=== PATIENT | female | born 1960 | race Caucasian/White ===

== ENCOUNTER 2019-07-31 14:58 | Outpatient (REF) | payer SELFPAY ==
[2019-07-31 16:36] LABS: Estmated Average Glucose 108; Hemoglobin A1C 5.4 % (4.0-6.0)
[2019-07-31 17:43] LABS: Cholesterol 195 mg/dL (0-200); Glucose 91 mg/dL (65-115); HDL Cholesterol 39 mg/dL (60-100); LDL Cholesterol Calculated 128 mg/dL (50-129); LDL HDL Ratio 3.28 RATIO (0.00-3.22); Triglycerides 141 mg/dL (0-150)
== END 2019-07-31 14:59 | disposition home or self-care (01) ==
LOC: LAB 14:58
PROVIDERS: Family Provider Family Medicine; PCP Family Medicine; Visit Provider Dermatology
DX: Z13.9 Encounter for screening, unspecified (principal)
CPT/HCPCS: 80061; 82947; 83036

== ENCOUNTER 2020-04-07 21:52 | Emergency (ER) | payer OTHER, SELFPAY ==
[2020-04-07 22:03] VITALS: BP 138/88; PULSE 93; RESP 18; O2SAT 95; BMI 39.1
--- NOTE | 2020-04-07 22:18 | ECG_ITS ---
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
--- NOTE | 2020-04-07 22:19 | XR_ITS ---
WS: [id number] XR chest 1V portable [id number] REASON FOR EXAM: Cough FINDINGS: The chest is unchanged compared to previous examination of 12/14/2011. The heart and mediastinum are within normal limits. No active pulmonary parenchymal or pleural disease is noted. Changes of degenerative spondylosis in the mid thoracic spine. XR/XR chest 1V portable [id number] IMPRESSION: No acute chest abnormality.
--- NOTE | 2020-04-07 22:23 | W.ED.COVID ---
HPI - COVID General: Chief Complaint: COVID symptoms Stated Complaint: COVID SYMPTOMS/ SOB Time Seen by Provider: 04/07/20 22:14 Source: patient Mode of arrival: ambulatory Limitations: no limitations Triage information: Has fever, cough or shortness of breath. Exposure to COVID + person last 14 days History of Present Illness: HPI Narrative: Christi is a nice 59-year-old female comes in complaining of sinus congestion, earache, sore throat, cough and rib pain. She states her ribs are sore from coughing so much. She states her greatest complaint is that of just drainage from her sinuses going down the back of her throat. She denies any fevers or chills. She denies any chest pain. She has her ribs are sore from coughing but otherwise denies any chest pain. Patient denies any other complaints or concerns. COVID 19 common symptoms: positive non-productive cough and throat pain; negative fever(s), chills, productive cough, dyspnea, fatigue, body aches, headache(s), nausea, vomiting or diarrhea COVID 19 other sytmptoms: negative chest pain or confusion COVID Results: SARS-CoV-2 Antigen (Rapid) Positive (Negative) H 04/07/20 22:29 04/07/20 Review of Systems Const: Denies: fever(s), chills, body aches, fatigue, malaise or diaphoresis Eyes: Denies: change in vision, blurry vision, photophobia, eye discomfort, eye discharge, eye redness or yellow eyes ENMT: Reports: throat pain and ear or mastoid pain; Denies: odynophagia, hoarseness, swelling of lips/tongue, ear discharge, change in hearing or nasal discharge Card: Denies: chest pain, palpitations, irregular heart rhythm, edema, lightheadedness, syncope, pre-syncope, dyspnea on exertion or orthopnea Resp: Reports: non-productive cough; Denies: dyspnea, productive cough, wheezing, hemoptysis or chest congestion GI: Denies: abdominal pain, nausea, vomiting, hematemesis, coffee ground emesis, heartburn, diarrhea, constipation, GI cramping, hematochezia or melena : Denies: flank pain, dysuria, urinary frequency, urinary urgency or hematuria Musc: Denies: neck pain, back pain, extremity pain, extremity swelling, joint pain, joint swelling, joint redness, joint warmth or joint stiffness Skin/Breast: Denies: rash, pruritus, erythema, skin pain or skin tenderness Neuro: Denies: headache(s), numbness in extremities, weakness in extremities, sensory changes, lack of coordination, difficulty walking, dizziness, vertigo, confusion, Slurred speech present or seizure-like activity Alfred/Lymph: Denies: easy bruising, easy bleeding, petechiae, purpura or enlarged lymph nodes All/Imm: Denies: urticaria, throat swelling, tongue swelling, facial swelling or acute wheezing PFSH ED PFSH: Medical History No pertinent past medical history Surgical History History of section, classical Physical Exam Const: COMMON NORMALS: no acute distress, patient oriented x3, no limitations and alert GENERAL APPEARANCE: cooperative HENMT: COMMON NORMALS: normocephalic, atraumatic, external ears normal, EAC's normal and Normal external nose present HEAD & SCALP: normal to inspection, normocephalic and atraumatic FACE & SINUS: normal facial exam and face symmetric NOSE: Normal external nose present and Normal nares present EXTERNAL EAR: Yes external ears normal EXTERNAL AUDITORY CANAL: EAC's normal MOUTH: Normal oral and palatal mucosa present, lip normal and tongue normal Eye: COMMON NORMALS: Equal, round and reactive pupils present and conjunctivae normal GENERAL EYE: appearance normal, both eyes and all related structures ALIGNMENT: Yes alignment normal PERIORBITAL: periorbital findings normal EYELID: eyelids normal CONJUNCTIVA: Yes conjunctivae normal SCLERA: sclerae normal PUPIL: Yes Equal, round and reactive pupils present Neck/C-Spine: COMMON NORMALS: full ROM, no lymphadenopathy, supple, no meningeal signs and no JVD GENERAL: Yes normal visual inspection and Yes trachea midline Chest: COMMONS NORMALS: normal inspection of the chest and normal palpation of entire chest wall Resp: COMMON NORMALS: normal respiratory effort, No retractions, No use of accessory muscles and clear to auscultation bilaterally EFFORT & INSPECTION: Yes able to speak in complete sentences and Yes symmetric chest movement AUSCULTATION: clear to auscultation bilaterally, no crackles, no rales, no rhonchi and no wheezes Cardio: COMMON NORMALS: no JVD, regular rate, regular rhythm, S1 normal heart sound present and S2 normal heart sound present RATE: regular rate RHYTHM: regular rhythm HEART SOUNDS: S1 normal heart sound present, S2 normal heart sound present, no click, no gallops, no murmurs and no rubs GI: COMMON NORMALS: Soft to palpation and No hepatosplenomegaly present PALPATION: Yes Soft to palpation, No Tenderness to palpation present (GI), No Guarding due to palpation present (GI), No Rigid due to palpation, Yes No hepatosplenomegaly present, No Hernia present, No Palpable mass present and No Pulsatile mass present : COMMON NORMALS: Yes no CVA tenderness BLADDER/KIDNEY EXAM: Yes no CVA tenderness EXTERNAL FEMALE EXAM: No Hernia present Back/Pelvis: COMMON NORMALS: no CVA tenderness, thoracic and lumbar spine normal to inspection, no thoracic nor lumbar tenderness and thoraco-lumbar ROM normal Extremity: COMMON NORMALS: normal to inspection, full ROM, capillary refill normal, no joint enlargement, no clubbing, cyanosis or edema and no calf tenderness Neuro: COMMON NORMALS: patient oriented x3, CN's II-XII intact bilaterally, moves all extremities, no focal motor deficits and no sensory deficits noted SENSORIUM/ORIENTATION: Yes alert MENINGEAL SIGNS: Yes no meningeal signs SPEECH: speech normal Psych: COMMON NORMALS: mental status grossly normal, Normal thought process present, cooperative, normal affect, speech normal and activity/motor behavior normal SPEECH: Yes normal speech THOUGHT PROCESS: Normal thought process present Skin: COMMON NORMALS: no rashes or lesions noted, turgor normal, no jaundice, no petechiae and no mottling GENERAL SKIN EXAM: no rashes or lesions noted and turgor normal Course Vital Signs: Vital signs: Vital Signs Pulse Rate 78 04/07/20 23:52 Respiratory Rate 18 04/07/20 23:52 Blood Pressure 153/79 04/07/20 23:52 Pulse Oximetry 97 04/07/20 23:52 MDM - COVID MDM Narrative Medical decision making narrative: Patient test positive for the Covid 19 virus. Her chest x-ray is clear and her vital signs are normal. Patient's lung sounds are clear. She is not hypoxic so she would not need Decadron nor rhythm severe. She would not need supplemental O2. I will discharge her home with a pulse oximeter to monitor her pulse ox. She understands how to do this and why to do this. She denies having other questions or concerns but does agree to return should her symptoms change or worsen. Lab Data Attestation: I reviewed the patient's lab results. Labs: Lab Results 04/07/20 Range/Units 22:29 SARS-CoV-2 Ag (Rapid) Positive H (Negative) COVID Results: SARS-CoV-2 Antigen (Rapid) Positive (Negative) H 04/07/20 22:29 04/07/20 Imaging Data CXR: Attestation: I personally reviewed and interpreted this imaging study as follows: My impression: No acute cardiopulmonary findings. EKG Data EKG 2: Attestation: I personally reviewed and interpreted this EKG as follows: EKG interpretation date: 04/07/20 EKG interpretation time: 22:47 Interpretation: Normal sinus rhythm at 78 beats a minute, no blocks, normal intervals, normal axis, no acute ST-T wave changes. Discharge Plan Discharge Patient Disposition: Home Clinical Impression: COVID-19 virus infection Upper respiratory infection Qualifiers: URI type: unspecified viral URI Qualified Code(s): J06.9 - Acute upper respiratory infection, unspecified Condition: Stable Prescriptions: New Tessalon Perles 100 mg capsule 200 mg PO TID PRN (Reason: cough) Qty: 60 RF: 0 Discharge Orders: Discharge Order (Routine); Ordered 04/07/20 Ordered By: Dipti Bingham Referrals: Kane Umana MD [Primary Care Provider] - 1-3 days Discharge Diet: Advance as tolerated Discharge Activity: Increase activity as tolerated Patient Instructions: Viral Pneumonia (ED), Upper Respiratory Infection (ED), Viral Syndrome (ED) Activity Restrictions/Additional Instructions: Please return to the ER immediately for any of the signs or symptoms listed on your discharge instruction sheets, worsening/changing of your symptoms, you are not getting better as quickly as expected, or for ANY other cause or concerns. Stay home and keep yourself quarantined and away from others until cleared by your doctor or the health department. You can contact either to see when they would like to test you so that she can return to work. Use your pulse ox at home and if for any reason your pulse ox fall below is 90% for a significant amount of time such as for more than 1 minute please return to the ER for recheck. Stand Alone Forms: Work/School Release Discharge Date/Time: 04/07/20 23:52 Coding Level of Care Code ED Tie Tape Machine Operator for Chg Fwd Exam Comprehensive
[2020-04-07 22:50] VITALS: BP 127/89; PULSE 77; RESP 18; O2SAT 97
[2020-04-07 23:24] LABS: SARS Covid-2 Antigen Positive (Negative)
[2020-04-07 23:52] VITALS: BP 153/79; PULSE 78; RESP 18; O2SAT 97
== END 2020-04-07 23:52 | disposition home or self-care (01) ==
PROVIDERS: Emergency Provider Emergency Medicine; PCP Family Medicine
DX: U07.1 COVID-19 (principal)
CPT/HCPCS: 12345; 71045; 87426; 93005; 99283

== ENCOUNTER 2020-11-07 21:55 | Emergency (ER) | payer SELFPAY ==
[2020-11-07 22:16] VITALS: BP 138/86; PULSE 66; RESP 15; TEMP 36.8; O2SAT 97; BMI 39.1
--- NOTE | 2020-11-08 00:39 | W.ED.EYEPROB ---
HPI - Eye Problem General: Chief complaint: Eye Problems Stated complaint: sinus infection Time Seen by Provider: 11/08/20 00:18 History of Present Illness: HPI Narrative: Patient presents with conjunctivitis to the right eye. Patient reports that she started having a sinus infection believes it is gone to her eyes. Patient continues to have pressure in her sinuses and purulent drainage from her nose. Patient appears well and nontoxic. Patient appears in mild pain. Review of Systems General: Reports: 10 or more systems reviewed and unremarkable except in HPI and below Eyes: Reports: eye redness PFS ED PFSH: Medical History (Updated 11/08/20 @ 00:38 by ASHLEY Butler) No pertinent past medical history Surgical History History of section, classical Physical Exam Const: COMMON NORMALS: no acute distress and patient oriented x3 GENERAL APPEARANCE: cooperative HENMT: COMMON NORMALS: normocephalic, TM's normal bilaterally and Normal external nose present HEAD & SCALP: normal to inspection, normocephalic and other (Sinus tenderness on palpation.) NOSE: Normal external nose present TYMPANIC MEMBRANE: TM's normal bilaterally MOUTH: Normal oral and palatal mucosa present THROAT: posterior oropharynx normal Eye: OTHER: Right eye has significant redness and swelling of eyelid and sclera. Patient also has some conjunctival edema. Neck/C-Spine: COMMON NORMALS: full ROM Lymph: LYMPHATIC: no lymphadenopathy noted Chest: COMMONS NORMALS: normal inspection of the chest Resp: COMMON NORMALS: normal respiratory effort EFFORT & INSPECTION: Yes able to speak in complete sentences Cardio: COMMON NORMALS: regular rate and regular rhythm RATE: regular rate RHYTHM: regular rhythm GI: COMMON NORMALS: non-tender : COMMON NORMALS: Yes no CVA tenderness BLADDER/KIDNEY EXAM: Yes no CVA tenderness Back/Pelvis: COMMON NORMALS: no CVA tenderness and thoracic and lumbar spine normal to inspection Extremity: COMMON NORMALS: normal to inspection Neuro: COMMON NORMALS: patient oriented x3 and moves all extremities Psych: COMMON NORMALS: mental status grossly normal and cooperative Skin: COMMON NORMALS: no rashes or lesions noted GENERAL SKIN EXAM: no rashes or lesions noted Course Vital Signs: Vital signs: Vital Signs Temperature 98.2 F 11/07/20 22:16 Pulse Rate 66 11/07/20 22:16 Respiratory Rate 15 06/06/21 22:16 Blood Pressure 138/86 11/07/20 22:16 Pulse Oximetry 97 11/07/20 22:16 MDM - Eye Problem MDM Narrative: Medical decision making narrative: Patient comes in today with sinus pain and redness to the right eye. On exam patient has significant redness and swelling to the eyelid with some sclera and conjunctival edema to the right eye. Pupils are equal reactive. Patient has pansinus tenderness. Differential diagnosis includes upper respiratory infection, bacterial conjunctivitis, allergic conjunctivitis, and rhinosinusitis. We will treat for sinus infection with Augmentin, and we will treat with conjunctivitis with prednisolone and moxifloxacin. Reviewed recommendations for treatment and need for follow-up. Patient reported understanding agreed to plan. Discharge Plan Discharge Patient Disposition: Home Clinical Impression: Bacterial conjunctivitis Sinusitis Qualifiers: Sinusitis location: pansinusitis Chronicity: acute Recurrence: non-recurrent Qualified Code(s): J01.40 - Acute pansinusitis, unspecified Condition: Stable Prescriptions: New Augmentin 875-125 mg tablet 1 tab PO BID Qty: 14 RF: 0 No Action Tessalon Perles 100 mg capsule 200 mg PO TID PRN (Reason: cough) Qty: 60 RF: 0 Discharge Orders: Discharge ED (Routine); Ordered 11/08/20 Ordered By: Everton East Referrals: Kane Umana MD [Primary Care Provider] - Discharge Diet: Usual diet Discharge Activity: Increase activity as tolerated Patient Instructions: Conjunctivitis (ED), Opioid Safety Activity Restrictions/Additional Instructions: Use antibiotic eyedrops 1 drop to both eyes twice a day while awake. Use eyedrops for the next 5 to 7 days. Take oral antibiotic twice a day for the next 7 days. Drink plenty of water with medication. Follow-up with primary care for further instruction. Follow-up with eye post acute care registered nurse for persistent eye symptoms. Return to the emergency department for new concerns. Coding Level of Care Code ED Charter Coordinator for Donn [employer] Exam Comprehensive
[2020-11-08] MEDS: prednisoLONE 1% Op Susp 5 mL Btl 1 DROP EYE-RIGHT (01:10)
[2020-11-08] MEDS: amoxicillin-clav 875-125 mg Tablet 1 TAB PO (01:15)
[2020-11-08 01:20] VITALS: PULSE 67; RESP 15; TEMP 36.8; O2SAT 97
== END 2020-11-08 01:23 | disposition home or self-care (01) ==
PROVIDERS: Emergency Provider Nurse Practitioner Family; PCP Family Medicine
DX: H10.89 Other conjunctivitis (principal); J01.40 Acute pansinusitis, unspecified
CPT/HCPCS: 99283

== ENCOUNTER 2022-01-12 15:40 | Outpatient (CLI) | payer OTHER, SELFPAY ==
--- NOTE | 2022-01-12 15:52 | MM_ITS ---
WS: [id number] BILATERAL 3D TOMOSYNTHESIS DIGITAL SCREENING MAMMOGRAPHY WITH CAD CLINICAL INFORMATION: SCREEN HISTORY: Screening mammogram. No current complaints. COMPARISON: TECHNIQUE: Bilateral CC and MLO views. FINDINGS: Scattered fibroglandular densities bilaterally. Stable dense asymmetric breast tissue upper outer RIG HT breast. Vascular calcification. No suspicious focal mass, asymmetry, calcifications, or architectu ral distortion. No evidence of malignancy. MM/[place] [id number] IMPRESSION: BI-RADS: 2-Benign FOLLOW UP: 1 Year Follow-up Recommend return to annual screening mammography.
== END 2022-01-12 15:41 | disposition home or self-care (01) ==
LOC: RAD 15:41
PROVIDERS: PCP Family Medicine; Visit Provider Electrodiagnostic Medicine
DX: Z12.31 Encounter for screening mammogram for malignant neoplasm of breast (principal)
CPT/HCPCS: 77063; 77067

== ENCOUNTER → 2022-12-20 10:22 | Outpatient (BNVA) | payer BC, MEDICAID, SELFPAY | PROVIDERS: PCP Family Medicine; Visit Provider Internal Medicine Rheumatology | DX: Z79.899 Other long term (current) drug therapy (principal); M19.041 Primary osteoarthritis, right hand; M19.042 Primary osteoarthritis, left hand; M19.071 Primary osteoarthritis, right ankle and foot | CPT/HCPCS: 36415; 73130; 73630; 80076; 82306; 82565; 85651; 86038; 86140; 86200; 86431; 86480; 86704; 86803; 86812; 87340 ==

== ENCOUNTER → 2023-05-16 15:20 | Outpatient (BNVA) | payer BC, MEDICAID, SELFPAY | PROVIDERS: PCP Family Medicine; Visit Provider Internal Medicine Rheumatology | DX: Z79.899 Other long term (current) drug therapy (principal); M19.90 Unspecified osteoarthritis, unspecified site | CPT/HCPCS: 36415; 80076; 82565; 85025; 86140 ==

== ENCOUNTER 2023-09-14 08:02 | Outpatient (CLI) | payer BC, MEDICAID, SELFPAY ==
[2023-09-14 08:21] LABS: Basophils # 0.1 10^3/uL (0.0-0.1); Basophils % 1.4 %; Hematocrit 40.3 % (36-47); Lymphocytes # 2.3 10^3/uL (0.8-4.8); Mean Corpuscular HGB Conc 33.7 g/dL (30-55); Mean Corpuscular Hemoglobin 31.4 pg (27-33); Mean Corpuscular Volume 93.1 fl (85-98); Mean Platelet Volume 12.4 fL (7.4-10.4); Monocytes # 0.4 10^3/uL (0.2-0.9); Monocytes % 8.4 %; Nucleated Red Blood Cells % 0 %; Platelet Count 175 10^3/cmm (157-399); Red Blood Count 4.33 10^6/uL (3.85-5.65); Red Cell Distribution Width 12.4 % (12.1-15.1); White Blood Count 4.89 10^3/uL (3.29-11.43)
[2023-09-14 08:38] LABS: Alanine Aminotransferase 42 U/L (0-33); Alkaline Phosphatase 71 U/L (35-105); Aspartate Amino Transferase 28 U/L (0-32); Globulin 2.6 g/dL (1.3-4.6); Total Bilirubin 0.4 mg/dL (0.15-1.2); Total Protein 6.6 g/dL (6.6-8.7)
== END 2023-09-14 08:03 | disposition home or self-care (01) ==
LOC: LAB 08:03
PROVIDERS: PCP Family Medicine; Visit Provider Internal Medicine Rheumatology
DX: Z79.899 Other long term (current) drug therapy (principal); M06.041 Rheumatoid arthritis without rheumatoid factor, right hand; M06.042 Rheumatoid arthritis without rheumatoid factor, left hand
CPT/HCPCS: 36415; 80076; 82565; 85025; 86140

== ENCOUNTER 2023-12-31 11:15 | Outpatient (CLI) | payer BC, MEDICAID, SELFPAY ==
[2023-12-31 12:03] LABS: Basophils # 0.1 10^3/uL (0.0-0.1); Basophils % 0.8 %; Eosinophils # 0.4 10^3/uL (0.0-0.8); Eosinophils % 5.9 %; Hematocrit 40.5 % (36-47); Lymphocytes # 2.2 10^3/uL (0.8-4.8); Lymphocytes % 36.5 %; Mean Corpuscular HGB Conc 34.6 g/dL (30-55); Mean Corpuscular Hemoglobin 30.8 pg (27-33); Mean Platelet Volume 11.9 fL (7.4-10.4); Monocytes # 0.6 10^3/uL (0.2-0.9); Neutrophils # 2.88 10^3/uL (1.8-7.7); Neutrophils % 47.5 %; Nucleated Red Blood Cells % 0 %; Platelet Count 223 10^3/cmm (157-399); Red Blood Count 4.55 10^6/uL (3.85-5.65); Red Cell Distribution Width 12.1 % (12.1-15.1); White Blood Count 6.08 10^3/uL (3.29-11.43)
[2023-12-31 12:21] LABS: Alanine Aminotransferase 41 U/L (0-33); Albumin Level 4.1 g/dL (3.5-5.2); Alkaline Phosphatase 82 U/L (35-105); Aspartate Amino Transferase 29 U/L (0-32); Glomerular Filtration Rate 101.6 mL/min (90-130); Total Bilirubin 0.4 mg/dL (0.15-1.2); Total Protein 7.1 g/dL (6.6-8.7)
== END 2023-12-31 11:16 | disposition home or self-care (01) ==
LOC: LAB 11:16
PROVIDERS: PCP Electrodiagnostic Medicine; Visit Provider Internal Medicine Rheumatology
DX: Z79.899 Other long term (current) drug therapy (principal); M06.041 Rheumatoid arthritis without rheumatoid factor, right hand; M06.042 Rheumatoid arthritis without rheumatoid factor, left hand
CPT/HCPCS: 36415; 80076; 82565; 85025; 86140

== ENCOUNTER 2024-04-15 09:56 | Outpatient (CLI) | payer BC, MEDICAID, SELFPAY ==
[2024-04-15 10:34] LABS: Basophils # 0.1 10^3/uL (0.0-0.1); Eosinophils # 0.1 10^3/uL (0.0-0.8); Eosinophils % 1.7 %; Hematocrit 42.2 % (36-47); Lymphocytes # 2.9 10^3/uL (0.8-4.8); Lymphocytes % 41.4 %; Mean Corpuscular HGB Conc 33.4 g/dL (30-55); Mean Corpuscular Hemoglobin 29.6 pg (27-33); Mean Corpuscular Volume 88.5 fl (85-98); Mean Platelet Volume 11.9 fL (7.4-10.4); Monocytes # 0.6 10^3/uL (0.2-0.9); Monocytes % 8.4 %; Neutrophils # 3.31 10^3/uL (1.8-7.7); Neutrophils % 47.2 %; Nucleated Red Blood Cells % 0 %; Platelet Count 224 10^3/cmm (157-399); Red Blood Count 4.77 10^6/uL (3.85-5.65); Red Cell Distribution Width 12.1 % (12.1-15.1); White Blood Count 7.01 10^3/uL (3.29-11.43)
[2024-04-15 10:38] LABS: Erythrocyte Sedimentation Rate 2 mm/hr (0-15)
[2024-04-15 11:06] LABS: Alanine Aminotransferase 26 U/L (0-33); Albumin Level 4.3 g/dL (3.5-5.2); Alkaline Phosphatase 85 U/L (35-105); Aspartate Amino Transferase 18 U/L (0-32); C Reactive Protein 3.5 mg/L (0.0-4.9); Globulin 2.4 g/dL (1.3-4.6); Glomerular Filtration Rate 85.1 mL/min (90-130); Total Bilirubin 0.5 mg/dL (0.15-1.2); Total Protein 6.7 g/dL (6.6-8.7)
== END 2024-04-15 09:57 | disposition home or self-care (01) ==
LOC: LAB 09:58
PROVIDERS: PCP Electrodiagnostic Medicine; Visit Provider Internal Medicine Rheumatology
DX: M06.041 Rheumatoid arthritis without rheumatoid factor, right hand (principal); M06.042 Rheumatoid arthritis without rheumatoid factor, left hand; Z79.899 Other long term (current) drug therapy
CPT/HCPCS: 36415; 80076; 82565; 85025; 85651; 86140

== ENCOUNTER 2024-04-23 14:38 | Outpatient (CLI) | payer BC, MEDICAID, SELFPAY ==
--- NOTE | 2024-04-23 14:44 | CT_ITS ---
WS: [id number] CT SINUSES TECHNIQUE: Noncontrast CT of the paranasal sinuses with coronal and sagittal reformatted images. CLINICAL INFORMATION: CHRONIC RHINITIS/ACUTE RECURRENT SINUSITIS COMPARISON: None. DLP: 402.[address] scans at [facility] use at least one of these dose optimization techniques: automated e xposure control; mA and/or kV adjustment per patient size (includes targeted exams where dose is matc hed to clinical indication); or iterative reconstruction. FINDINGS: Paranasal sinuses are well aerated. Moderate LEFT RIGHT nasal septal deviation measuring 5 to 6 mm. P aranasal sinuses are well aerated. Mastoid air cells are well aerated. Normal posterior nasopharynx. Normal parapharyngeal fat. Extra-axial calcified lesion overlying the R IGHT anterior temporal lobe likely a small calcified meningioma measuring 8 mm. This is incidental. Ostiomeatal units are patent. LEFT miguel bullosa. CT/CT sinus wo con* [id number] IMPRESSION: 1. Moderate nasal septal deviation measuring 5 to 6 mm. 2. Paranasal sinuses are well aerated. Ostiomeatal units are patent. 3. Mastoid air cells are well aerated. 4. Extra-axial calcified lesion overlying the RIGHT anterior temporal lobe lik jensen a small calcified meningioma measuring 8 mm. This is incidental.
== END 2024-04-23 14:39 | disposition home or self-care (01) ==
PROVIDERS: PCP Electrodiagnostic Medicine; Visit Provider Otolaryngology
DX: J34.2 Deviated nasal septum (principal); D32.0 Benign neoplasm of cerebral meninges; J01.91 Acute recurrent sinusitis, unspecified; J31.0 Chronic rhinitis
CPT/HCPCS: 70486

== ENCOUNTER → 2024-09-24 11:43 | Outpatient (BNVA) | payer BC, MEDICAID, SELFPAY | PROVIDERS: PCP Electrodiagnostic Medicine; Visit Provider Internal Medicine Rheumatology | DX: Z79.899 Other long term (current) drug therapy (principal) | CPT/HCPCS: 36415; 80076; 82565; 85025; 85651; 86140 ==

== ENCOUNTER → 2025-02-04 13:19 | Outpatient (BNVA) | payer MEDICAID, MEDICARE, SELFPAY | PROVIDERS: PCP Electrodiagnostic Medicine; Visit Provider Internal Medicine Rheumatology | DX: M17.12 Unilateral primary osteoarthritis, left knee (principal); Z71.85 Encounter for immunization safety counseling; Z79.899 Other long term (current) drug therapy; M06.041 Rheumatoid arthritis without rheumatoid factor, right hand; M06.042 Rheumatoid arthritis without rheumatoid factor, left hand | CPT/HCPCS: 99214 ==